=== PATIENT | male | born 1945 | race Caucasian/White ===

== ENCOUNTER 2017-06-21 06:27 | Inpatient (IN) | payer OTHER ==
[~2017-06-21] VITALS: Ht 182.9 cm; Wt 125.5 kg
--- NOTE | ~2017-06-21 | EKG ---
[address] [address] ELECTROCARDIOGRAM REPORT Name: BHANUMERARY Room #: 427- ADM IN M.R.#: [id number] Admission: 06/21/17 Attend Phys: Huey Castillo MD Discharge: Date of : 49 Report #: [id number] THIS REPORT FOR: //name// [facility] Test Date: 2017-06-21 Test Time: 16:28:03 Pat Name: MERARY DRUMMOND Department: Room: 427 P Gender: M [employer]: Trent PRIETO : 1945 Requested By: Kathleen Betancur Order Number: [id number] MD: Damian Ramirez Measurements Intervals Vernal Rate: 60 P: 94 WV: 183 QRS: -16 QRSD: 106 T: 8 QT: 467 QTc: 467 Interpretive Statements Sinus rhythm No significant abnormality No previous ECG available for comparison Electronically Signed On 06-21-2017 16:45:38 CDT by Damian Ramirez [email or web address] <ELECTRONICALLY SIGNED> By: Damian Ramirez MD, [facility] 06/21/17 1645 1628 1628 Damian Ramirez MD, FACC /EPI
--- NOTE | ~2017-06-21 | O ---
[facility] [place] [address] OPERATIVE REPORT Name: MERARY DRUMMOND Room #: 427-P [facility] IN M.R.#: [id number] Admission: 06/21/17 Attend Phys: Huey Castillo MD Discharge: 06/26/17 Date of : 49 Report #: [id number] THIS REPORT FOR: //name// CC: Huey Calzada DATE OF SERVICE: 06/21/2017 PREOPERATIVE DIAGNOSES: 1. Incarcerated incisional ventral hernia. 2. Obesity. 3. Hypertension. 4. Obstructive sleep apnea. POSTOPERATIVE DIAGNOSES: 1. Incarcerated incisional ventral hernia. 2. Obesity. 3. Hypertension. 4. Obstructive sleep apnea. SURGEON: Kimani Forbes MD NURSING STUDENT: FREDERICK Lamb PROCEDURES: 1. Laparoscopic repair of incarcerated incisional ventral hernia with Ventralight 15 x 20 cm mesh patch with ECHO positioning system. 2. Laparoscopic lysis adhesions with release of small-bowel obstruction. ANESTHESIA: General endotracheal anesthesia and local anesthetic. ESTIMATED BLOOD LOSS: 25 mL. SPECIMEN: Incarcerated hernia content. COMPLICATIONS: None appreciated. INDICATIONS FOR PROCEDURE: This is a 71-year-old male patient who was seen in the [place] [facility] with abdominal pain starting last night with associated nausea and constipation over the past couple of days. He has a known incisional ventral hernia from the previous surgery secondary to strangulated omentum. On exam, he was found to have a large firm bulge above his umbilicus that was tender to palpation without overlying erythema or edema and unable to be reduced. CT showed changes consistent with a small-bowel obstruction secondary to the hernia. A dilated loop of small bowel was present with decompressed small bowel distal to the incarcerated bowel. There was no [facility] [address] [place] [address] OPERATIVE REPORT Name: MERARY DRUMMOND Room #: 427-P [facility] IN ..#: [id number] Admission: 06/21/17 Attend Phys: Huey Castillo MD Discharge: 06/26/17 Date of : 49 Report #: [id number] evidence for pneumatosis or strangulation. A second fat-containing ventral hernia was also seen in the epigastric area. The patient presents now for laparoscopic repair of his incarcerated incisional ventral hernias. OPERATIVE FINDINGS: Upon entrance into the abdominal cavity, bowel and omentum were seen entering two discrete hernia defects that were relatively close to each other. After appropriate dissection, the more cephalad defect contained only omentum. There was a fascial bridge between the two defects and overall, the defects spanned 9 cm in length. The more inferior defect contained a loop of small bowel. After reducing this, there was mild ecchymosis of the bowel wall without johnathon necrosis. After a period of observation, the bowel was felt to be viable and uninjured. Resection was not necessary. No other significant intra-abdominal pathology was seen. At the conclusion of the operation, the sponge, needle and instrument counts were correct. There was no evidence for iatrogenic injury. DESCRIPTION OF PROCEDURE IN DETAIL: After risks, benefits, and expectations of the operation were discussed in detail with the patient, informed consent was obtained. The patient was identified in the preoperative holding area. He was given IV antibiotics as documented in the chart in line with the SCIP metrics. The patient was then taken to the Operating Room and he was placed in the supine position. SCDs were placed on the patient's bilateral lower extremities and pneumatic compression was initiated. The patient was then given IV sedation and he was intubated without incident. Abdomen was prepped and draped in standard sterile fashion. A time-out was performed to identify the correct patient and procedure. Local anesthetic was infiltrated into the skin and subcutaneous tissue in the left subcostal area where a small transverse incision was made. A 5-mm Visiport was placed intraperitoneally with a 0-degree angled laparoscope. Pneumoperitoneum was achieved with insufflation of carbon dioxide to 15 mmHg. A 30-degree angled laparoscope was then inserted. A left lateral 12-mm and left lower quadrant 5-mm port were each placed under direct visualization after local anesthetic was infiltrated into the skin and subcutaneous tissue and appropriately sized incisions were made. Operative findings are as noted above. The incarcerated omentum into the cephalad defect was carefully reduced with judicious use of the ultrasonic dissector after ensuring that there was no bowel involvement. Similarly, the more inferior tissue was reduced from the defect. Omentum was initially reduced with again judicious use of the ultrasonic dissector. Cold scissor dissection was used in areas near bowel. The bowel was then eventually able to be reduced and the loop of bowel was examined for both injury and viability. The bowel was placed in its normal anatomic location. The remaining omentum was reduced from the defect. It had been divided and was dissected free thereafter without difficulty. The incarcerated tissue was placed anterior to the liver to be later removed. The abdominal wall was then [facility] [address] [place] [address] OPERATIVE REPORT Name: MERARY DRUMMOND Room #: 427-P [facility] IN Cheryl.#: [id number] Admission: 06/21/17 Attend Phys: Huey Castillo MD Discharge: 06/26/17 Date of : 49 Report #: [id number] skeletonized with the ultrasonic dissector. The span of the defects was measured and the appropriate sized mesh was chosen. The skeletonized peritoneum and hernia sac from each defect were placed anterior to the liver to be later removed as well. The defects were then closed with interrupted [id number] #1 PDS sutures through two separate stab wounds to completely close the defects. The needle tipped suture grasper was used to accomplish this. The intra-abdominal pressure was dropped to 8 mmHg. The sutures were not initially tied. A 15 x 20 cm mesh patch was then prepared on the back table. It was rolled and placed within the abdominal cavity through the 12 mm port. The mesh was then unrolled and an eyelet of the inflation catheter was passed transfascially using the needle tipped suture grasper. The eyelet was excised and the balloon was inflated to serve as a scaffolding. While not fully advancing the mesh to the anterior abdominal wall, the [id number] sutures were tied under direct visualization to ensure complete closure of the defects. The mesh was then advanced to the anterior abdominal wall. The mesh was affixed to the anterior abdominal wall with the SecureStrap absorbable fixation device. Tacks were placed at less than 1 cm intervals around the periphery of the mesh. The inflation catheter was then divided at the skin level and the balloon was removed through the 12 mm port. Additional tacks were placed along the midline and internal portion of the mesh at evenly spaced intervals. The mesh was without rippling, with good coverage of the closed defects. The incarcerated tissue that had been reduced and transected, was then removed through the 12 mm port site. After removing all the incarcerated tissue, an 0 PDS suture was used to close the port site fascial defect with the Ravin-Akira laparoscopic fascial closure device. The suture was tied under direct visualization to ensure no incorporation of intra-abdominal content. No other significant pathology was seen. The bowel was inspected one final time to ensure its viability. The abdominal cavity was then desufflated and the remaining ports were removed. Interrupted subcuticular 4-0 Monocryl sutures and Dermabond were used to close the skin incisions. The patient tolerated the procedure well. He was awakened, extubated, and taken to recovery room in stable condition with no apparent intraoperative complications. <ELECTRONICALLY SIGNED> By: Kimani Forbes MD, FACS 06/29/17 1137 [id number] Kimani Forbes MD, FACS /nt
[2017-06-21] MEDS ORDERED: ATENOLOL 50MG T50 M1 PO (06:31)
[2017-06-21 06:32] VITALS: BP 164/81
[2017-06-21] MEDS ORDERED: TRAMADOL 50 MG50 MG PO (06:36)
[2017-06-21 06:51] LABS: ABSOLUTE NEUTROPHILS 7.8 thou/uL (1.4-8.2); BASOPHILS 0.6 % (0.0-2.0); EOSINOPHILS 0.8 % (0.0-3.0); HEMATOCRIT 42.9 % (42.0-52.0); HEMOGLOBIN 14.7 gm/dL (14.0-18.0); LYMPHOCYTES 15.5 % (24.0-44.0); MCH 32.1 pg (26.0-34.0); MCHC 34.2 g/dL (28.0-37.0); MCV 93.6 fL (80.0-100.0); PLATELET COUNT 121 thou/uL (150-400); POLYS 77.1 % (36.0-66.0); RBC 4.58 mil/uL (4.50-6.00); WBC 10.2 thou/uL (4.0-11.0)
[2017-06-21 06:54] LABS: CREATININE 0.8 mg/dL (0.7-1.3); POTASSIUM 3.8 mmol/L (3.5-5.1)
[2017-06-21 07:00] LABS: ALBUMIN 3.7 g/dL (3.4-5.0); TOTAL BILIRUBIN 0.7 mg/dL (<0.1-1.0); TOTAL PROTEIN 7.5 g/dL (6.4-8.2)
[2017-06-21 07:01] LABS: URINE BILIRUBIN NEGATIVE (Negative); URINE BLOOD NEGATIVE (Negative); URINE CLARITY CLEAR; URINE COLOR YELLOW; URINE GLUCOSE-RANDOM* NEGATIVE (Negative); URINE KETONES 2+ (Negative); URINE LEUKOCYTES-REFLEX NEGATIVE (Negative); URINE NITRITE-REFLEX NEGATIVE (Negative); URINE PROTEIN (DIPSTICK) NEGATIVE (Negative); URINE SPECIFIC GRAVITY 1.025 (1.005-1.035)
[2017-06-21 09:44] VITALS: BP 138/66
[2017-06-21 10:01] VITALS: BP 134/62
[2017-06-21 10:50] VITALS: BP 137/79
[2017-06-21 17:40] VITALS: BP 145/88
[2017-06-21 21:00] VITALS: BP 114/72
[2017-06-22 01:02] VITALS: BP 140/77
[2017-06-22 04:30] VITALS: BP 122/65; BP 157/59
[2017-06-22 06:16] LABS: ABSOLUTE NEUTROPHILS 10.1 thou/uL (1.4-8.2); BASOPHILS 0.1 % (0.0-2.0); HEMOGLOBIN 13.5 gm/dL (14.0-18.0); LYMPHOCYTES 8.1 % (24.0-44.0); MCH 32.3 pg (26.0-34.0); MCHC 34.6 g/dL (28.0-37.0); MCV 93.4 fL (80.0-100.0); MONOCYTES 6.9 % (1.0-8.0); PLATELET COUNT 114 thou/uL (150-400); POLYS 84.9 % (36.0-66.0); RBC 4.18 mil/uL (4.50-6.00); WBC 11.9 thou/uL (4.0-11.0)
[2017-06-22 06:22] LABS: CALCIUM 8.3 mg/dL (8.5-10.1); CREATININE 0.7 mg/dL (0.7-1.3); POTASSIUM 4.1 mmol/L (3.5-5.1)
[2017-06-22 08:06] VITALS: BP 104/62
[2017-06-22 18:04] VITALS: BP 115/58
[2017-06-22 20:00] VITALS: BP 136/58
[2017-06-23 04:00] VITALS: BP 144/79
[2017-06-23 07:30] VITALS: BP 142/79
[2017-06-23 15:00] VITALS: BP 130/71
[2017-06-23 20:00] VITALS: BP 148/71
[2017-06-24 04:25] VITALS: BP 144/73
[2017-06-24 07:10] VITALS: BP 145/66
[2017-06-24 10:29] LABS: HEMATOCRIT 36.3 % (42.0-52.0); HEMOGLOBIN 12.4 gm/dL (14.0-18.0); MCHC 34.1 g/dL (28.0-37.0); MCV 93.7 fL (80.0-100.0); RBC 3.88 mil/uL (4.50-6.00); RDW 12.9 % (10.5-14.5); WBC 9.2 thou/uL (4.0-11.0)
[2017-06-24 10:37] LABS: CALCIUM 8.2 mg/dL (8.5-10.1); CREATININE 0.6 mg/dL (0.7-1.3); POTASSIUM 3.3 mmol/L (3.5-5.1)
[2017-06-24 15:10] VITALS: BP 124/61
[2017-06-24 20:30] VITALS: BP 119/73
[2017-06-25 04:30] VITALS: BP 144/84
[2017-06-25 07:37] VITALS: BP 120/72
[2017-06-25 15:51] VITALS: BP 122/79
[2017-06-25 19:31] VITALS: BP 139/70
[2017-06-26 05:56] LABS: CALCIUM 8.2 mg/dL (8.5-10.1); CREATININE 0.6 mg/dL (0.7-1.3); POTASSIUM 3.4 mmol/L (3.5-5.1)
[2017-06-26 06:00] LABS: ABSOLUTE NEUTROPHILS 5.4 thou/uL (1.4-8.2); BASOPHILS 0.4 % (0.0-2.0); EOSINOPHILS 3.5 % (0.0-3.0); HEMOGLOBIN 12.6 gm/dL (14.0-18.0); LYMPHOCYTES 15.6 % (24.0-44.0); MCH 32.3 pg (26.0-34.0); MCHC 34.9 g/dL (28.0-37.0); MCV 92.5 fL (80.0-100.0); MONOCYTES 7.7 % (1.0-8.0); PLATELET COUNT 129 thou/uL (150-400); POLYS 72.8 % (36.0-66.0); RDW 12.8 % (10.5-14.5); WBC 7.4 thou/uL (4.0-11.0)
[2017-06-26 07:14] VITALS: BP 126/76
[2017-06-26] MEDS ORDERED: OXYCONTIN10 M1 PO (16:58)
[2017-06-26 17:47] VITALS: BP 126/76
[2017-06-26 17:50] VITALS: BP 126/76
== END 2017-06-26 18:57 | disposition home or self-care (01) | DRG 353 ==
LOC: ER 06:27 → EROBS 07:57 → 4E 07:57
PROVIDERS: Emergency Medicine; Family Medicine; Surgery
PROC: 0WUF4JZ Supplement Abdominal Wall with Synthetic Substitute, Percutaneous Endoscopic Approach (ICD-10-PCS; principal; 2017-06-21)
DX: K43.0 Incisional hernia with obstruction, without gangrene (principal); E43 Unspecified severe protein-calorie malnutrition; F17.210 Nicotine dependence, cigarettes, uncomplicated; E66.9 Obesity, unspecified; I10 Essential (primary) hypertension; G47.33 Obstructive sleep apnea (adult) (pediatric); Z79.899 Other long term (current) drug therapy; Z88.8 Allergy status to other drugs, medicaments and biological substances; Z68.37 Body mass index [BMI] 37.0-37.9, adult
CPT/HCPCS: 10084; 50010; 50249; 50386; 50455; 50555; 50558; 50859; 50962; 50984; 52265; 53307; 54022; 54118; 56462; 56524; 56526; 56527; 57092; 62110; 62900

== ENCOUNTER → 2020-08-06 | Outpatient (CLI) | payer OTHER ==
[~2020-08-06] MED LIST: ATENOLOL 50MG T50 M1 PO; OXYCONTIN10 M1 PO; TRAMADOL 50 MG50 MG PO
== END ==
LOC: SJCVC 13:02
PROVIDERS: ATTEND Internal Medicine
DX: R94.31 Abnormal electrocardiogram [ECG] [EKG] (principal); R00.1 Bradycardia, unspecified; I48.0 Paroxysmal atrial fibrillation; I10 Essential (primary) hypertension; E78.5 Hyperlipidemia, unspecified; G47.33 Obstructive sleep apnea (adult) (pediatric); K21.9 Gastro-esophageal reflux disease without esophagitis; M10.9 Gout, unspecified; E78.00 Pure hypercholesterolemia, unspecified; E03.9 Hypothyroidism, unspecified; E11.40 Type 2 diabetes mellitus with diabetic neuropathy, unspecified; Z72.0 Tobacco use; Z79.899 Other long term (current) drug therapy; Z72.89 Other problems related to lifestyle; Z88.1 Allergy status to other antibiotic agents; Z88.5 Allergy status to narcotic agent

== ENCOUNTER → 2020-09-02 | Outpatient (CLI) | payer OTHER | LOC: SJCVCIMAG 09:06 | PROVIDERS: ATTEND Internal Medicine | DX: I08.0 Rheumatic disorders of both mitral and aortic valves (principal); I11.9 Hypertensive heart disease without heart failure; E11.9 Type 2 diabetes mellitus without complications; I48.91 Unspecified atrial fibrillation ==

== ENCOUNTER → 2020-12-10 | Outpatient (CLI) | payer OTHER | LOC: SJCVC 13:37 | PROVIDERS: ATTEND Internal Medicine | DX: R00.1 Bradycardia, unspecified (principal); I48.0 Paroxysmal atrial fibrillation; I10 Essential (primary) hypertension; E78.5 Hyperlipidemia, unspecified; G47.33 Obstructive sleep apnea (adult) (pediatric); E11.9 Type 2 diabetes mellitus without complications; I71.2 Thoracic aortic aneurysm, without rupture; Z72.0 Tobacco use; F17.200 Nicotine dependence, unspecified, uncomplicated; K21.9 Gastro-esophageal reflux disease without esophagitis; E03.9 Hypothyroidism, unspecified; Z72.89 Other problems related to lifestyle; Z79.899 Other long term (current) drug therapy; Z88.1 Allergy status to other antibiotic agents; Z88.8 Allergy status to other drugs, medicaments and biological substances; Z91.018 Allergy to other foods ==

== ENCOUNTER → 2021-01-07 | Outpatient (CLI) | payer OTHER | LOC: SJCVCIMAG 08:23 | PROVIDERS: ATTEND Internal Medicine | DX: I71.4 Abdominal aortic aneurysm, without rupture (principal) ==

== ENCOUNTER → 2021-01-13 | Outpatient (CLI) | payer OTHER | LOC: CAT 11:20 | PROVIDERS: ATTEND Internal Medicine | DX: I25.10 Atherosclerotic heart disease of native coronary artery without angina pectoris (principal); Z72.0 Tobacco use ==